=== PATIENT | female | born 1955 | race Caucasian/White ===

== ENCOUNTER 2016-07-09 07:49 | Emergency (ER) | payer BC ==
[~2016-07-09] VITALS: Ht 167.6 cm; Wt 72.7 kg
[2016-07-09] MEDS ORDERED: GLUCOPHAGE PO (09:39)
[2016-07-09] MEDS ORDERED: LISINOPRIL10 MG PO (09:39)
[2016-07-09] MEDS ORDERED: CEPHALEXIN500 M1 PO (09:39)
[2016-07-09 10:03] VITALS: BP 138/99
== END 2016-07-09 09:52 | disposition home or self-care (01) ==
LOC: ED 07:49
DX: J44.1 Chronic obstructive pulmonary disease with (acute) exacerbation (principal); J45.909 Unspecified asthma, uncomplicated; I10 Essential (primary) hypertension; E11.9 Type 2 diabetes mellitus without complications; Z79.84 Long term (current) use of oral hypoglycemic drugs; Z91.120 Patient's intentional underdosing of medication regimen due to financial hardship
CPT/HCPCS: J1040